=== PATIENT | female | born 1980 | race Caucasian/White ===

== ENCOUNTER 2017-08-23 11:24 | Observation (INO) | payer SELFPAY ==
[~2017-08-23 11:24] MED LIST: LIDOCAINE 2% INJ-PF (20 MG/ML) 10 ML AMPUL ONE; SUCCINYLCHOLINE CHLORIDE INJ 200 MG/10 ML VIAL ONE
[2017-08-23] MEDS ORDERED: INFLUENZA ADLT QUAD (36MOS+) 2017-18 VAC 0.5 ML SYR IM PRN (12:24)
[2017-08-23] MEDS ORDERED: MORPHINE SULFATE 10 MG/ML INJ IV PRN ×3 (12:26→19:32)
[2017-08-23 13:00] LABS: HEMATOCRIT 36.7 % (36.0-47.0); HEMOGLOBIN 13.1 g/dL (12.0-15.5); HGB HCT DIFFERENCE 2.6; MEAN CORPUSCULAR HEMOGLOBIN 30.4 pg (27.0-33.4); MEAN CORPUSCULAR HGB CONC 35.6 g/dL (32.0-36.0); MEAN CORPUSCULAR VOLUME 85 fl (80-97); RED CELL DISTRIBUTION WIDTH 13.7 % (11.5-14.0); WHITE BLOOD COUNT 7.6 10^3/uL (4.0-10.5)
[2017-08-23 13:16] LABS: ANION GAP 11 (5-19); BLOOD UREA NITROGEN 10 mg/dL (7-20); CALCIUM 9.3 mg/dL (8.4-10.2); CARBON DIOXIDE 25 mmol/L (22-30); CHLORIDE 103 mmol/L (98-107); CREATININE RESULT 0.55 mg/dL (0.52-1.25); GLUCOSE 120 mg/dL (75-110); POTASSIUM 4.3 mmol/L (3.6-5.0); SODIUM 138.6 mmol/L (137-145)
[2017-08-23] MEDS ORDERED: CLINDAMYCIN PHOSPHATE 450 MG in DEXTROSE 5%-WATER 50 ML IV SCH (14:00)
[2017-08-23] MEDS: NORMAL SALINE 1000 ML 1,000 ML IV PRN (14:02)
--- NOTE | 2017-08-23 16:02 | RADIOLOGY REPORT (SQ) ---
EXAM DESCRIPTION: U/S BREAST UNILATERAL COMPLETE COMPLETED DATE/TIME: 08/23/2017 2:05 pm REASON FOR STUDY: RIGHT BREAST ABSCESS COMPARISON: None. TECHNIQUE: Real-time and static grayscale imaging performed of the right breast targeted to the area of clinical concern. Selected color Doppler images recorded. ELASTOGRAPHY PERFORMED: No. LIMITATIONS: None. FINDINGS: Patient has a palpable abnormality in the right retroareolar region, skin thickening and r edness. Ultrasound of the right retroareolar region demonstrates a hypoechoic irregularly-shaped fluid collec tion measuring about 3.3 x 2.2 x 1.6 cm in size. There is debris within this fluid collection. There is a fluid-filled tract towards the nipple, likely a dilated duct. No ductal filling defects worrisome for papilloma. IMPRESSION: Saccular dilated right retroareolar duct with debris. No ductal filling defects worriso me for papilloma at ultrasound. BIRAD: 2 Benign findings, probable dilated infected duct. RECOMMENDATION: RECOMMENDED FOLLOW-UP: Follow-up as clinically indicated. COMMENT: Case discussed with Dr. Santos PATIENT NOTIFIED BY LETTER. [employer], [employer], and [employer] recommend an annual screening mammogram for women aged 40 years or over. Each patient will recei ve a reminder prior to the anniversary date of her mammogram. The [employer] (ACR) has developed recommendations for screening MRI of the breast s in certain patient populations, to be used in conjunction with mammography. Breast MRI surveillanc e may be appropriate for women with more than 20% lifetime risk of developing breast cancer as deter mined by genetic testing, significant family history of the disease, or history of mantle radiation f or Hodgkins Disease. ACR Practice Guidelines 2008. TECHNICAL DOCUMENTATION: JOB ID: [id number] [employer]- All Rights Reserved
[2017-08-23] MEDS ORDERED: LIDOCAINE 0.5% INJ-PF (5 MG/ML) 50 ML SDV ONE (17:04)
[2017-08-23] MEDS ORDERED: FENTANYL CITRATE INJ/PF 100 MCG/2 ML AMPUL ONE ×2 (17:35→18:59)
[2017-08-23] MEDS ORDERED: KETAMINE HCL INJ 500 MG/10 ML VIAL ONE (17:35)
[2017-08-23] MEDS ORDERED: MIDAZOLAM 2 MG/2 ML INJ ONE (17:36)
[2017-08-23] MEDS ORDERED: PROPOFOL INJ 200 MG/20 ML VIAL IV ONE (17:36)
[2017-08-23] MEDS ORDERED: PROMETHAZINE HCL INJ 25 MG/1 ML VIAL IV PRN (18:22)
[2017-08-23] MEDS ORDERED: PROMETHAZINE HCL INJ 25 MG/1 ML VIAL ONE (18:49)
--- NOTE | 2017-08-23 19:17 | OPERATIVE REPORT E ---
Operative Report NAME: TIA DELGADO : 1980 AGE: 37Y DATE OF SURGERY: ROOM: 529 PREOPERATIVE DIAGNOSIS: ABSCESS, RIGHT BREAST. POSTOPERATIVE DIAGNOSIS: ABSCESS, RIGHT BREAST. OPERATION: Incision and drainage of abscess, right breast, and right breast biopsy. SURGEON: JANE MCKEON M.D. ANESTHESIA: General. INDICATION: This is a 36-year-old female who has been complaining of pains in the right breast. She was seen in the clinic today and subsequently sent for an ultrasound. The ultrasound showed a dilated duct with possible abscess. PROCEDURE: After adequate general anesthesia, the right breast was then prepped and draped in the usual sterile fashion. After adequate and appropriate timeout was called, a circumareolar incision made over the previous scar on the lower inner quadrant of the right breast where the palpable lump was noted. The lump could be palpated underneath the areola and the 18-gauge needle was then used to aspirate the collection and aspirated about 5 mL of whitish fluid. The specimen was sent for culture. Next, the sac was then opened up and pulse lavaged using a liter of saline which was done. Hemostasis was then obtained with cautery. No other area of abscess cavity was noted based on the finger palpation. Next, the operative site was then packed with a bottle of 1/4 inch Iodoform gauze. Hemostasis obtained primarily along the skin incision with cautery. A sterile dressing was placed over the operative site. Needle, instrument and sponge count were all correct. Estimated blood loss was about 20 mL. The patient tolerated the procedure well and was brought to the PACU in satisfactory condition. DICTATING PHYSICIAN: JANE MCKEON M.D. [id number] PHY#: [id number] ID: [id number] JOB#: [id number] ACCT: [id number] cc:JANE MCKEON M.D. > [facility]
[2017-08-23] MEDS ORDERED: ONDANSETRON HCL INJ/PF 4 MG/2 ML SDV IV PRN (19:33)
[2017-08-23] MEDS: DIPHENHYDRAMINE HCL 50 MG/ML VIAL IV PRN ×3 (19:52→21:04)
[2017-08-23] MEDS: FENTANYL CITRATE INJ/PF 100 MCG/2 ML AMPUL IV PRN ×9 (19:52→21:04)
[2017-08-23] MEDS ORDERED: ZOLPIDEM TARTRATE 5 MG TABLET PO PRN (21:01)
[2017-08-23] MEDS: CLINDAMYCIN 600 MG/D5W RTU 600 MG/50 ML RTUPB IV SCH (21:07)
[2017-08-23] MEDS ORDERED: NICOTINE 21 MG/24 HR PATCH.TD24 TD ONE (21:30)
[2017-08-24] MEDS: NORMAL SALINE 1000 ML 1,000 ML IV PRN (00:03)
[2017-08-24] MEDS: CLINDAMYCIN 600 MG/D5W RTU 600 MG/50 ML RTUPB IV SCH ×2 (03:04→08:25)
[2017-08-24] MEDS: OXYCODONE-ACETAMINOPHEN 5-325 MG TABLET PO PRN ×3 (04:31→08:32)
[2017-08-24 08:09] VITALS: BP 126/49
[2017-08-24] MEDS ORDERED: NICOTINE 21 MG/24 HR PATCH.TD24 TD SCH (10:00)
== END 2017-08-24 09:12 | disposition home or self-care (01) ==
LOC: 5 11:24 → INTOOBSV 11:24
PROVIDERS: ADMIT Surgery; ATTEND Surgery
PROC: 0H9T3ZX Drainage of Right Breast, Percutaneous Approach, Diagnostic (ICD-10-PCS; principal; 2017-08-23 17:00)
PROC: 3E0234Z Introduction of Serum, Toxoid and Vaccine into Muscle, Percutaneous Approach (ICD-10-PCS; 2017-08-24)
DX: N61.1 Abscess of the breast and nipple (principal); F17.200 Nicotine dependence, unspecified, uncomplicated; Z80.3 Family history of malignant neoplasm of breast; Z98.890 Other specified postprocedural states
CPT/HCPCS: 36415; 87070; 87205; 84702; 84703; 85027; 87075; 87077; 80048; 88305 ×2; 88342; 90686; 76641; 10021; A6266; J2250; J3010; J3490 ×2; J2270; J2550; J0330; J7030 ×2; J2704; 300; 400

== ENCOUNTER 2017-10-24 17:02 | Observation (INO) | payer SELFPAY ==
[2017-10-24] MEDS ORDERED: MORPHINE SULFATE 10 MG/ML INJ IV PRN (20:21)
[2017-10-24] MEDS ORDERED: VANCOMYCIN HCL INJ 1000 MG VIAL IV ONE (20:23)
--- NOTE | 2017-10-24 20:25 | ER Document Report ---
ED General - General Chief Complaint: Abscess Stated Complaint: ABSCESS ON RIGHT BREAST Time Seen by Provider: 10/24/17 19:13 Notes: Patient is a 37-year-old female with a past medical history of morbid obesity, recurrent right breast abscesses most recently incised and drained in the operating room in August 2017 who presents with 3 days of increasing pain and swelling to the right breast. Patient has an area falling and fluctuance to the right breast over the level of the area left. She states that this is the same location that she has had 2 prior abscesses formed. She notes a dull, constant, throbbing pain to the area that is worsened by touching the area. Nothing improves the pain. She has not had any fever or constitutional symptoms. She has not seen a primary care doctor regarding today's concerns. TRAVEL OUTSIDE OF THE [place] IN LAST 30 DAYS: No - Related Data Allergies/Adverse Reactions: No Known Allergies Allergy (Verified 10/24/17 17:04) Home Medications: Current Home Medications No Home Medications 10/24/17 [History] Past Medical History - General Information source: Patient - Social History Smoking Status: Never Smoker Chew tobacco use (# tins/day): No Frequency of alcohol use: None Drug Abuse: None Lives with: Family Family History: Reviewed & Not Pertinent Patient has suicidal ideation: No Patient has homicidal ideation: No Pulmonary Medical History: Reports: Hx Bronchitis Renal/ Medical History: Denies: Hx Peritoneal Dialysis Psychiatric Medical History: Reports: Hx Depression Review of Systems - Review of Systems Notes: Constitutional: Negative for fever. HENT: Negative for sore throat. Eyes: Negative for visual changes. Cardiovascular: Negative for chest pain. Respiratory: Negative for shortness of breath. Gastrointestinal: Negative for abdominal pain, vomiting or diarrhea. Genitourinary: Negative for dysuria. Musculoskeletal: Negative for back pain. Skin: Positive for right breast abscess Neurological: Negative for headaches, weakness or numbness. 10 point ROS negative except as marked above and in HPI. Physical Exam - Vital signs Vitals: Temp Pulse Resp BP Pulse Ox 99.1 F 90 20 130/88 H 98 10/24/17 17:18 10/24/17 17:18 10/24/17 17:18 10/24/17 17:18 10/24/17 17:18 Interpretation: Normal Notes: PHYSICAL EXAMINATION: GENERAL: Well-appearing, well-nourished and in no acute distress. HEAD: Atraumatic, normocephalic. EYES: Pupils equal round and reactive to light, extraocular movements intact, sclera anicteric, conjunctiva are normal. ENT: nares patent, oropharynx clear without exudates. Moist mucous membranes. NECK: Normal range of motion, supple without lymphadenopathy LUNGS: Breath sounds clear to auscultation bilaterally and equal. No wheezes rales or rhonchi. HEART: Regular rate and rhythm without murmurs Breasts: There is a 3 x 4 cm area of swelling and induration that is in the 5 o' clock position of the areole extending just slightly off of the margin of the area. ABDOMEN: Soft, nontender, normoactive bowel sounds. No guarding, no rebound. No masses appreciated. EXTREMITIES: Normal range of motion, no pitting or edema. No cyanosis. NEUROLOGICAL: No focal neurological deficits. Moves all extremities spontaneously and on command. PSYCH: Normal mood, normal affect. SKIN: Warm, Dry, normal turgor, no rashes or lesions noted. Course - Re-evaluation Re-evalutation: 10/24/17 20:24 Patient presents with a 3 x 4 cm area of an abscess to the approximately 5 o' clock position on her breast overlying the area of the area Dayna. Patient is otherwise nontoxic in appearance, vitals within normal limits. There is exquisite pain to palpation of the area. She has required operative management on 2 prior occasions for the same presentation. I discussed the case with the surgeon on-call doctor tomorrow who agrees to admit the patient given her need for prior abscess drainages in the operating room. IV antibiotics including vancomycin and ceftriaxone have been started. Pain control has been ordered. She will be made n.p.o. at midnight. Basic labs and ultrasound of the breast will also be obtained. - Vital Signs Vital signs: Temp Pulse Resp BP Pulse Ox 99.1 F 92 16 133/76 H 98 10/24/17 22:54 10/24/17 22:54 10/24/17 22:54 10/24/17 22:54 10/24/17 22:54 - Laboratory Result Diagrams: 10/24/17 21:00 10/24/17 21:00 Discharge - Discharge Clinical Impression: Abscess of right breast Condition: Fair Disposition: ADMITTED OBSERVATION Admitting Provider: Surgicalist - [facility] Unit Admitted: Surgical Floor
[2017-10-24] MEDS ORDERED: CEFTRIAXONE 1 GM/D5W RTU 1 GM/50 ML RTUPB IV ONE (21:00)
[2017-10-24] MEDS ORDERED: ONDANSETRON HCL INJ/PF 4 MG/2 ML SDV IV PRN (21:03)
[2017-10-24 21:14] LABS: ABSOLUTE EOSINOPHILS # (AUTO) 0.3 10^3/uL (0.0-0.6); ABSOLUTE LYMPHOCYTES (AUTO) 3.7 10^3/uL (0.5-4.7); ABSOLUTE MONOCYTES (AUTO) 0.5 10^3/uL (0.1-1.4); ABSOLUTE NEUT (AUTO) 6.7 10^3/uL (1.7-8.2); BASOPHILS % (AUTO) 0.2 % (0-2); HEMOGLOBIN 13.5 g/dL (12.0-15.5); HGB HCT DIFFERENCE 1.5; LYMPHOCYTES % (AUTO) 33.1 % (13-45); MEAN CORPUSCULAR HEMOGLOBIN 29.9 pg (27.0-33.4); MEAN CORPUSCULAR HGB CONC 34.6 g/dL (32.0-36.0); MEAN CORPUSCULAR VOLUME 86 fl (80-97); MONOCYTES % (AUTO) 4.1 % (3-13); RED BLOOD COUNT 4.52 10^6/uL (3.72-5.28); RED CELL DISTRIBUTION WIDTH 12.4 % (11.5-14.0); SEGMENTED NEUTROPHILS % (AUTO) 59.6 % (42-78); WHITE BLOOD COUNT 11.2 10^3/uL (4.0-10.5)
[2017-10-24 21:33] LABS: ANION GAP 14 (5-19); BLOOD UREA NITROGEN 11 mg/dL (7-20); CALCIUM 9.2 mg/dL (8.4-10.2); CARBON DIOXIDE 21 mmol/L (22-30); CHLORIDE 106 mmol/L (98-107); CREATININE RESULT 0.61 mg/dL (0.52-1.25); GLUCOSE 134 mg/dL (75-110); POTASSIUM 4.1 mmol/L (3.6-5.0); SODIUM 140.8 mmol/L (137-145)
[2017-10-24] MEDS ORDERED: ENOXAPARIN SODIUM INJ 40 MG/0.4 ML DISP.SYRIN SUBCUT ONE (22:00)
--- NOTE | 2017-10-24 22:17 | RADIOLOGY REPORT (SQ) ---
EXAM DESCRIPTION: U/S BREAST UNILATERAL LIMITED COMPLETED DATE/TIME: 10/24/2017 9:48 pm REASON FOR STUDY: right breast abscess COMPARISON: None TECHNIQUE: Static and Realtime grayscale interrogation of focal area(s) of concern in the right misty st(s) acquired. Selected color doppler/spectral images saved to PACS. LIMITATIONS: None. FINDINGS: Masses:A hypoechoic area is identified in the retro areolar region at the approximate 4 to 5 o'clock position with findings suspicious for an abscess collection. The hypoechoic area measures 1.3 x 1.3 x 0.7 cm in diameters. Other: None. IMPRESSION: Hypoechoic area in the retroareolar region as noted above suspicious for an abscess col lection. Clinical correlation is recommended. Other findings as noted above BIRAD: Not applicable. RECOMMENDATION: RECOMMENDED FOLLOW-UP: Follow-up as clinically indicated. COMMENT: The [place] (ACR) has developed recommendations for screening MRI of the breasts in certain patient populations, to be used in conjunction with mammography. Breast MRI s urveillance may be appropriate for women with more than 20% lifetime risk of developing breast cancer as determined by genetic testing, significant family history of the disease, or history of mantle r adiation for Hodgkins Disease. ACR Practice Guidelines 2008. TECHNICAL DOCUMENTATION: FINDING NUMBER: (1) ASSESSMENT: (1) JOB ID: [id number] [employer]- All Rights Reserved
[2017-10-24] MEDS ORDERED: PIPERACILLIN/TAZOBACTAM 4.5 GM VIAL IV PRN (23:08)
[2017-10-25] MEDS ORDERED: LORAZEPAM INJ 2 MG/1 ML VIAL IV PRN (00:48)
[2017-10-25] MEDS ORDERED: PIPERACILLIN/TAZOBACTAM 4.5 GM VIAL IV ONE (01:29)
[2017-10-25] MEDS: PIPERACILLIN SODIUM/TAZOBACTAM 4.5 GM in NORMAL SALINE 100 ML IV SCH ×4 (01:48→18:47)
[2017-10-25] MEDS: RINGERS SOLUTION,LACTATED 1,000 ML IV PRN ×2 (01:49→12:55)
[2017-10-25] MEDS: HYDROMORPHONE HCL INJ/PF 2 MG/ML AMPULE IV PRN ×3 (03:30→11:05)
[2017-10-25] MEDS ORDERED: PIPERACILLIN SODIUM/TAZOBACTAM 3.375 GM in NORMAL SALINE 100 ML IV SCH (10:00)
--- NOTE | 2017-10-25 11:24 | PDOC H&P ---
History of Present Illness Admission Date/PCP: 10/24/17 20:49 KULDIP ADAN DO Patient complains of: Patient is a 37-year-old female with a past medical history of morbid obesity, recurrent right breast abscesses most recently incised and drained in the operating room in August 2017 who presents with 3 days of increasing pain and swelling to the right breast. Patient has an area falling and fluctuance to the right breast over the level of the area left. She states that this is the same location that she has had 2 prior abscesses formed. She notes a dull, constant, throbbing pain to the area that is worsened by touching the area. Nothing improves the pain. She has not had any fever or constitutional symptoms. History of Present Illness: TIA DELGADO is a 37 year old female Past Medical History Pulmonary Medical History: Reports: Bronchitis Psychiatric Medical History: Reports: Depression Social History Lives with: Family Smoking Status: Never Smoker Frequency of Alcohol Use: Occasional Hx Recreational Drug Use: No Drugs: None Hx Prescription Drug Abuse: No - Advance Directive Resuscitation Status: Full Code Family History Family History: Reviewed & Not Pertinent Parental Family History Reviewed: No Children Family History Reviewed: No Sibling(s) Family History Reviewed.: No Medication/Allergy Home Medications: No Home Medications 10/24/17 Allergies/Adverse Reactions: No Known Allergies Allergy (Verified 10/24/17 17:04) Physical Exam Vital Signs: Temp Pulse Resp BP Pulse Ox 97.4 F 87 15 112/61 96 10/25/17 07:26 10/25/17 07:26 10/25/17 07:26 10/25/17 07:26 10/25/17 07:26 General appearance: PRESENT: no acute distress Mouth exam: PRESENT: moist, neck supple Neck exam: PRESENT: full ROM. ABSENT: JVD, lymphadenopathy, tenderness, thyromegaly, tracheal deviation Respiratory exam: PRESENT: chest wall tenderness - Abscess (3x3cm) at 5-6 o' clock position right breast at areolar border. Cardiovascular exam: PRESENT: RRR GI/Abdominal exam: PRESENT: normal bowel sounds, soft. ABSENT: tenderness Rectal exam: PRESENT: deferred Extremities exam: PRESENT: full ROM Musculoskeletal exam: PRESENT: full ROM Neurological exam: PRESENT: alert, altered, awake, oriented to person, oriented to place, oriented to time, oriented to situation Results Laboratory Results: 10/24/17 21:00 10/24/17 21:00 10/24/17 10/24/17 21:00 21:00 WBC 11.2 H RBC 4.52 Hgb 13.5 Hct 39.0 MCV 86 MCH 29.9 MCHC 34.6 RDW 12.4 Plt Count 183 Seg Neutrophils % 59.6 Lymphocytes % 33.1 Monocytes % 4.1 Eosinophils % 3.0 Basophils % 0.2 Absolute Neutrophils 6.7 Absolute Lymphocytes 3.7 Absolute Monocytes 0.5 Absolute Eosinophils 0.3 Absolute Basophils 0.0 Sodium 140.8 Potassium 4.1 Chloride 106 Carbon Dioxide 21 L Anion Gap 14 BUN 11 Creatinine 0.61 Est GFR ( Amer) > 60 Est GFR (Non-Af Amer) > 60 Glucose 134 H Calcium 9.2 Assessment & Plan - Plan Summary Plan Summary: Incision and Drainage of breast abscess in O.R.
[2017-10-25] MEDS ORDERED: FENTANYL CITRATE INJ/PF 100 MCG/2 ML AMPUL ONE (15:57)
[2017-10-25] MEDS ORDERED: PROPOFOL INJ 200 MG/20 ML VIAL IV ONE (15:58)
[2017-10-25] MEDS ORDERED: ONDANSETRON HCL INJ/PF 4 MG/2 ML SDV ONE (15:58)
[2017-10-25] MEDS ORDERED: MIDAZOLAM 2 MG/2 ML INJ ONE (15:58)
[2017-10-25] MEDS ORDERED: BUPIVACAINE HCL 0.5 % INJ/PF 30 ML SDV ONE (16:58)
[2017-10-25] MEDS ORDERED: MEPERIDINE HCL/PF INJ 25 MG/1 ML DISP.SYRIN IV PRN (17:19)
[2017-10-25] MEDS ORDERED: DIPHENHYDRAMINE HCL 50 MG/ML VIAL IV PRN (17:19)
[2017-10-25] MEDS ORDERED: PROMETHAZINE HCL INJ 25 MG/1 ML VIAL IV PRN (17:19)
[2017-10-25] MEDS ORDERED: FENTANYL CITRATE INJ/PF 100 MCG/2 ML AMPUL IV PRN ×3 (17:19)
[2017-10-25] MEDS ORDERED: MORPHINE SULFATE 10 MG/ML INJ IV PRN ×2 (17:19→18:02)
--- NOTE | 2017-10-25 18:02 | Brief Operative Note ---
BRIEF OPERATIVE REPORT DATE OF SURGERY: 10/25/17 TIME OF SURGERY: 17:00 PREOPERATIVE DIAGNOSIS: Right Breast Abscess POSTOPERATIVE DIAGNOSIS: Same SURGEON: ROBBIE CALDERON FINDINGS: Right Breast Abscess COMPLICATIONS: None ESTIMATED BLOOD LOSS: 5cc TISSUE REMOVED OR ALTERED: Abscess wall TECHNICAL PROCEDURE: See dictation
--- NOTE | 2017-10-25 19:08 | OPERATIVE REPORT E ---
Operative Report NAME: TIA DELGADO : 1980 AGE: 37Y DATE OF SURGERY: 10/25/2017 ROOM: 226 PREOPERATIVE DIAGNOSIS: Recurrent right breast abscess. POSTOPERATIVE DIAGNOSIS: Recurrent right breast abscess. OPERATION: Incision and drainage of right breast abscess. SURGEON: ROBBIE CALDERON M.D. ANESTHESIA: MAC plus local anesthesia. DRAINS: A 1/4-inch Queenie drain placed in the depth of the breast and brought out laterally to marya our position of the right breast. COMPLICATIONS: None. CONDITION: Stable. FINDINGS: Patient had an abscess of the right breast at the areolar border at the 6 Dr. *------* 2 months ago. PROCEDURE: Patient was brought to the operating suite and placed in supine position on the operating table. Monitoring devices were attached. IV sedation was administered and the patient's right breast was prepped and draped in the usual sterile manner. A timeout was achieved, then local anesthesia was injected along the areolar border from the 3 o'clock to the 7 o'clock position. We then made an incision at the areolar border from the 3 o'clock to the 7 o'clock position. Incision was carried through skin and subcutaneous tissue and the abscess cavity was noted just posterior to the nipple and areolar region. The purulent drainage was cultured and then we excised the abscess wall and it from the overlying nipple-areolar complex. After excising the wall of the abscess, we irrigated the wound with normal saline, and after adequate hemostasis was accomplished, we placed the 1/4-inch Queenie drain at the base of the wound and brought it out laterally to marya our position of the right breast. We then approximated the subcutaneous tissue over the drain using interrupted 3-0 Vicryl, and the skin was closed in a subcuticular manner using 4-0 Vicryl subcuticular closure. The drain was secured using 3-0 nylon. The patient tolerated the procedure well. Sponge and instrument counts were correct. The patient was discharged to the PAC in stable condition. DICTATING PHYSICIAN: ROBBIE CALDERON M.D. [id number] PHY#: [id number] ID: [id number] JOB#: [id number] ACCT: [id number] cc:ROBBIE CALDERON M.D. >
[2017-10-25] MEDS: OXYCODONE-ACETAMINOPHEN 5-325 MG TABLET PO PRN (21:55)
[2017-10-26] MEDS: PIPERACILLIN SODIUM/TAZOBACTAM 4.5 GM in NORMAL SALINE 100 ML IV SCH ×3 (00:24→11:21)
[2017-10-26] MEDS: OXYCODONE-ACETAMINOPHEN 5-325 MG TABLET PO PRN ×4 (02:18→14:33)
--- NOTE | 2017-10-26 11:13 | PDOC PROGRESS REPORT ---
Subjective Progress Note for:: 10/26/17 Subjective:: Still with some right breast pain. Reason For Visit: RIGHT BREAST ABCESS Physical Exam Vital Signs: Temp Pulse Resp BP Pulse Ox 98.4 F 80 18 128/70 H 99 10/26/17 08:22 10/26/17 08:22 10/26/17 08:22 10/26/17 08:22 10/26/17 08:22 Intake & Output 10/25/17 10/26/17 10/27/17 06:59 06:59 06:59 Intake Total 1600 Output Total 175 Balance 1425 General appearance: PRESENT: no acute distress, cooperative Respiratory exam: PRESENT: clear to auscultation kriss Cardiovascular exam: PRESENT: RRR Skin exam: PRESENT: other - Right breast with a Queenie in place. No erythema no induration central tenderness. Results Laboratory Results: 10/24/17 21:00 10/24/17 21:00 Assessment & Plan - Diagnosis (1) Abscess of right breast Is this a current diagnosis for this admission?: Yes Plan: Status post incision and drainage and drain placement. Looks good. Will discharge patient home with p.o. antibiotics and will follow up at our office next week.
--- NOTE | 2017-10-26 12:14 | DISCHARGE SUMMARY E ---
Discharge Summary NAME: TIA DELGADO : 1980 AGE: 37Y ADMITTED: 10/25/2017 DISCHARGED: 10/26/2017 DISCHARGE DIAGNOSIS: Right breast abscess. PROCEDURE PERFORMED DURING HOSPITALIZATION: Right breast abscess incision and drainage performed by Dr. Ayala on 10/25/2017. HOSPITAL COURSE: The patient underwent the above mentioned surgery. She did well postoperatively. Her wound looked good at the time of discharge with no erythema, although she still had tenderness. Her vital signs were stable. Patient is now being discharged to home in good condition. She will follow up with Dr. Stanley next week. DISCHARGE MEDICATIONS: 1. Keflex 500 mg 1 p.o. q.i.d. for 10 days. 2. Percocet 1 p.o. q. 4 hours p.r.n. pain. DISCHARGE INSTRUCTIONS: I have asked her to take a shower daily with the dressings off and then reapply dry dressing. I have also asked her to quit smoking to allow this area to heal without recurrence. She may follow a regular diet. DICTATING PHYSICIAN: DAVID CONNOR M.D. [id number] PHY#: [id number] ID: [id number] JOB#: [id number] ACCT: [id number] cc:DAVID CONNOR M.D. [facility],
[2017-10-26 12:35] VITALS: BP 120/56
== END 2017-10-26 15:46 | disposition home or self-care (01) ==
LOC: ER 17:02 → EH 20:49 → 2S 10-25 00:33
PROVIDERS: ATTEND Surgery
PROC: 0JB60ZZ Excision of Chest Subcutaneous Tissue and Fascia, Open Approach (ICD-10-PCS; 2017-10-25)
PROC: 0J960ZZ Drainage of Chest Subcutaneous Tissue and Fascia, Open Approach (ICD-10-PCS; principal; 2017-10-25 15:15)
DX: N61.1 Abscess of the breast and nipple (principal)
CPT/HCPCS: 99284; 96372; 96365; 96367; 36415; 87040; 87070; 87205; 85025; 81025; 87075; 87077; 80048; 88305 ×2; 76642; 10060; 19499; G0378 ×3; J2250; J3010; J2270; J1650; J1170; J2060; J2405; J7120; J2704; J3370; J0696; J2543 ×2; 400

== ENCOUNTER 2017-11-26 17:49 | Observation (INO) | payer SELFPAY ==
[2017-11-26 23:01] LABS: ANION GAP 16 (5-19); BLOOD UREA NITROGEN 13 mg/dL (7-20); CALCIUM 10.4 mg/dL (8.4-10.2); CARBON DIOXIDE 20 mmol/L (22-30); CHLORIDE 102 mmol/L (98-107); GLUCOSE 178 mg/dL (75-110); POTASSIUM 4.2 mmol/L (3.6-5.0); SODIUM 137.8 mmol/L (137-145)
--- NOTE | 2017-11-26 23:32 | PDOC H&P ---
History of Present Illness Admission Date/PCP: 11/26/17 20:58 KULDIP ADAN DO Patient complains of: Right breast pains since yesterday. History of Present Illness: TIA DELGADO is a 37 year old female who started c/o right breast pains yesterday. Had right breast abscess drained in February in [place]. Again in Aug and October here at [facility]. US of right breast showed a small abscess abour 1.8 cm at the areolar area. Past Medical History Pulmonary Medical History: Reports: Bronchitis Psychiatric Medical History: Reports: Depression Past Surgical History Past Surgical History: Reports: Other - Right breast abscess drained February,Aug & Oct 2017 Tremaine Ahn Social History Smoking Status: Current Some Day Smoker Cigarettes Packs Per Day: 0.2 Frequency of Alcohol Use: Occasional Hx Recreational Drug Use: No Drugs: None Hx Prescription Drug Abuse: No - Advance Directive Resuscitation Status: Full Code Family History Family History: Reviewed & Not Pertinent Parental Family History Reviewed: Yes - Father has DM and Coronary heart disease ,had VT Children Family History Reviewed: No Sibling(s) Family History Reviewed.: No Medication/Allergy Home Medications: No Home Medications 11/27/17 Allergies/Adverse Reactions: No Known Allergies Allergy (Verified 10/24/17 17:04) Review of Systems Constitutional: PRESENT: other - Denies fever/chills Eyes: PRESENT: other - no visual/hearing problems Nose, Mouth, and Throat: PRESENT: other - no sore throat Breasts: PRESENT: other - Pains right breast Cardiovascular: PRESENT: other - no chest pains Respiratory: PRESENT: other - no cough Gastrointestinal: PRESENT: other - no abdominal pains Genitourinary: PRESENT: other - no dysuria Integumentary: PRESENT: other - no rash Neurological: PRESENT: other - no seizures Psychiatric: PRESENT: anxiety Endocrine: PRESENT: other - no polyuria Hematologic/Lymphatic: PRESENT: other - no easy bruisability Physical Exam General appearance: PRESENT: no acute distress Head exam: PRESENT: atraumatic Eye exam: PRESENT: conjunctiva pink Mouth exam: PRESENT: moist, tongue midline Neck exam: PRESENT: full ROM Respiratory exam: PRESENT: clear to auscultation kriss Cardiovascular exam: PRESENT: RRR GI/Abdominal exam: PRESENT: soft Rectal exam: PRESENT: deferred Extremities exam: PRESENT: full ROM Musculoskeletal exam: PRESENT: ambulatory Neurological exam: PRESENT: alert, oriented to person, oriented to place, oriented to time, oriented to situation Psychiatric exam: PRESENT: anxious Skin exam: PRESENT: other - tender mass right areolar area Results Laboratory Results: 11/26/17 22:30 11/26/17 22:30 Sodium 137.8 Potassium 4.2 Chloride 102 Carbon Dioxide 20 L Anion Gap 16 BUN 13 Creatinine 0.68 Est GFR ( Amer) > 60 Est GFR (Non-Af Amer) > 60 Glucose 178 H Calcium 10.4 H Assessment & Plan - Time Time Spent: 30 to 50 Minutes - Inpatient Certification Based on my medical assessment, after consideration of the patient's comorbidities, presenting symptoms, or acuity I expect that the services needed warrant INPATIENT care.: No I certify that my determination is in accordance with my understanding of Medicare's requirements for reasonable and necessary INPATIENT services [42 CFR 412.3e].: Yes Medical Necessity: Need for IV Antibiotics, Need for Surgery, Risk of Complication if Not Cared For in Hospital - Plan Summary Plan Summary: Start IV antibiotics NPO from midnite Possible I&D tomorrow
[2017-11-27] MEDS ORDERED: DEXTROSE 50%-WATER 25 GM/50 ML DISP.SYRIN IV PRN ×2 (00:24)
[2017-11-27] MEDS ORDERED: DEXTROSE 40% GEL 15 GM TUBE PO PRN ×2 (00:24)
[2017-11-27] MEDS ORDERED: GLUCAGON,HUMAN RECOMB 1 MG INJ SUBCUT PRN (00:24)
[2017-11-27] MEDS: NORMAL SALINE 1000 ML 1,000 ML IV PRN ×3 (00:30→20:36)
[2017-11-27] MEDS ORDERED: MORPHINE SULFATE 10 MG/ML INJ ONE (00:58)
[2017-11-27] MEDS ORDERED: LORAZEPAM INJ 2 MG/1 ML VIAL IV PRN (01:48)
[2017-11-27] MEDS ORDERED: VANCOMYCIN HCL INJ 1000 MG VIAL IV PRN (02:01)
[2017-11-27 04:11] LABS: ABSOLUTE BASOPHILS # (AUTO) 0.1 10^3/uL (0.0-0.2); ABSOLUTE EOSINOPHILS # (AUTO) 0.2 10^3/uL (0.0-0.6); ABSOLUTE LYMPHOCYTES (AUTO) 3.4 10^3/uL (0.5-4.7); ABSOLUTE MONOCYTES (AUTO) 0.3 10^3/uL (0.1-1.4); ABSOLUTE NEUT (AUTO) 5.8 10^3/uL (1.7-8.2); BASOPHILS % (AUTO) 1.2 % (0-2); EOSINOPHILS % (AUTO) 2.1 % (0-6); HEMATOCRIT 45.5 % (36.0-47.0); HEMOGLOBIN 15.5 g/dL (12.0-15.5); LYMPHOCYTES % (AUTO) 34.7 % (13-45); MEAN CORPUSCULAR HEMOGLOBIN 29.4 pg (27.0-33.4); MEAN CORPUSCULAR VOLUME 86 fl (80-97); MONOCYTES % (AUTO) 2.9 % (3-13); PLATELET COUNT 233 10^3/uL (150-450); RED BLOOD COUNT 5.27 10^6/uL (3.72-5.28); RED CELL DISTRIBUTION WIDTH 12.6 % (11.5-14.0); SEGMENTED NEUTROPHILS % (AUTO) 59.1 % (42-78); TOTAL CELLS COUNTED % (AUTO) 100 %; WHITE BLOOD COUNT 9.8 10^3/uL (4.0-10.5)
[2017-11-27] MEDS: MORPHINE SULFATE 10 MG/ML INJ IV PRN ×2 (05:12→09:17)
--- NOTE | 2017-11-27 09:00 | Physician Advisory Note ---
Physician Advisor ProgressNote .: Pursuant to the plan for [facility], I have reviewed the medical record for this patient. Physician Advisor Statement: Please consider documenting, if you agree: 1. "obesity with BMI 40.4" Thanks! CK
--- NOTE | 2017-11-27 09:16 | RADIOLOGY REPORT (SQ) ---
EXAM DESCRIPTION: U/S BREAST UNILATERAL LIMITED COMPLETED DATE/TIME: 11/27/2017 1:12 am REASON FOR STUDY: RULE OUT ABSCESS COMPARISON: None accessible TECHNIQUE: Real-time and static grayscale imaging performed of the right breast targeted to the area of clinical/mammographic concern. Selected color Doppler images recorded. LIMITATIONS: None. FINDINGS: MASS: 1.7 by 1.1 x 0.8 cm complicated anechoic mass with through transmission periareolar on the right at 3 o'clock. OTHER: No other significant finding. IMPRESSION: Complex cystic lesion compatible with the clinical diagnosis of small breast abscess. BIRAD: 2 Benign findings. RECOMMENDATION: RECOMMENDED FOLLOW-UP: Follow-up as clinically indicated. COMMENT: The [place] [employer] (ACR) has developed recommendations for screening MRI of the breasts in certain patient populations, to be used in conjunction with mammography. Breast MRI s urveillance may be appropriate for women with more than 20% lifetime risk of developing breast cancer as determined by genetic testing, significant family history of the disease, or history of mantle r adiation for Hodgkins Disease. ACR Practice Guidelines 2008. TECHNICAL DOCUMENTATION: JOB ID: [id number] [employer]- All Rights Reserved
[2017-11-27] MEDS: VANCOMYCIN HCL 1,000 MG in DEXTROSE 5%-WATER 250 ML IV SCH ×2 (10:11→23:09)
[2017-11-27] MEDS ORDERED: FENTANYL CITRATE INJ/PF 100 MCG/2 ML AMPUL ONE (12:41)
[2017-11-27] MEDS ORDERED: LIDOCAINE 2% INJ-PF (20 MG/ML) 10 ML AMPUL ONE (12:41)
[2017-11-27] MEDS ORDERED: PROPOFOL INJ 200 MG/20 ML VIAL IV ONE (12:42)
[2017-11-27] MEDS ORDERED: MIDAZOLAM 2 MG/2 ML INJ ONE ×2 (12:42→13:15)
[2017-11-27] MEDS ORDERED: KETAMINE HCL INJ 500 MG/10 ML VIAL ONE (13:15)
[2017-11-27] MEDS ORDERED: BUPIVACAINE HCL 0.5 % INJ/PF 30 ML SDV ONE (13:18)
[2017-11-27] MEDS ORDERED: LIDOCAINE 1% INJ-PF (10 MG/ML) 30 ML SDV ONE (13:18)
[2017-11-27] MEDS ORDERED: BUPIVACAINE HCL 0.25 % INJ/PF (2.5 MG/1 ML) 30 ML VIAL ONE (13:19)
[2017-11-27] MEDS ORDERED: ONDANSETRON HCL INJ/PF 4 MG/2 ML SDV IV PRN (13:48)
[2017-11-27] MEDS ORDERED: PROMETHAZINE HCL INJ 25 MG/1 ML VIAL IV PRN ×2 (13:48)
[2017-11-27] MEDS ORDERED: MORPHINE SULFATE 10 MG/ML INJ IV PRN (13:48)
[2017-11-27] MEDS ORDERED: MEPERIDINE HCL/PF INJ 25 MG/1 ML DISP.SYRIN IV PRN (13:48)
[2017-11-27] MEDS ORDERED: FENTANYL CITRATE INJ/PF 100 MCG/2 ML AMPUL IV PRN ×3 (13:48)
[2017-11-27] MEDS ORDERED: OXYCODONE-ACETAMINOPHEN 5-325 MG TABLET PO PRN ×2 (13:48)
[2017-11-27] MEDS ORDERED: DIPHENHYDRAMINE HCL 50 MG/ML VIAL IV PRN (13:48)
[2017-11-27] MEDS: FENTANYL CITRATE INJ/PF 100 MCG/2 ML AMPUL ONE ×2 (14:18→14:25)
--- NOTE | 2017-11-27 14:25 | Operative Report ---
Operative Report DATE OF SURGERY: 11/27/17 PREOPERATIVE DIAGNOSIS: 1. Chronic right breast pain. 2. Status post incision and drainage drainage, and subsequent limited right breast lumpectomy POSTOPERATIVE DIAGNOSIS: Same with minimal findings some no evidence of infection at previous drain site right breast, 9 o'clock position, centimeters from nipple; residual central breast cavity with minimal fluid postoperative and tissue breakdown OPERATION: 1. Focused ultrasound of the right breast. 2. Limited debridement central cavity right breast with placement of large diameter, truncated Albert- Jones drain. 3. Limited debridement of previous drain site 9 o'clock position right breast SURGEON: JOSEPH STANLEY ANESTHESIA: LMAC TISSUE REMOVED OR ALTERED: Cavity irrigant COMPLICATIONS: None ESTIMATED BLOOD LOSS: Minimal INTRAOPERATIVE FINDINGS: See below PROCEDURE: Patient is seen in the preop holding area with the right breast was marked. The record, Dr. Stanley spoke with the patient on the floor this morning at [facility] approximately 9:00; and again in the preop holding area at approximately 1:00 PM. My assessment was that the patient's planes of pain, and obsession with her right breast were out of proportion to physical exam findings as well as radiographic findings, specifically last p.m. ultrasound. My plan initially was to perform focused ultrasound at bedside possible needle aspiration of the right breast residual fluid cavity but the patient was not interested in undergoing a procedure using this approach. Therefore we are bringing her back to the operating room with the assistance of anesthesia. Her graft The patient was taken to the operating room where LMAC anesthesia was induced. The right breast was exposed, prepped and draped sterile fashion. Surgical plan surgical timeout were conducted. The findings on physical exam were significant for no erythema. There is some firmness around the distorted postoperative area [place]. There is some flattening and distortion of the nipple. A few pimples, with no drainage. At the 9:00 addition approximately 7 cm from the nipple side of the previous operative drain which appears clinically to have no infection however this is an area of great pain to the patient. Both the superior aspect of the right breast, and the 9 o'clock position of the ipsilateral breast were anesthetized with quarter percent Marcaine. An ultrasound, I scanned the central aspect of the right breast. No evidence of difficult edema. There was a hypoechoic control but he approximately 0.5 x 2 and half centimeters, horizontally oriented with some Posterior enhancement. Multiple photos taken. Impression was that of residual fluid versus postoperative cavity. I used 18-gauge needle and ultrasound as a guide to aspirate this area. We did get some altered fat appearing fluid. I therefore opened up tract with hemostat and communicated this track with the small cavity. The cavity was irrigated any loculations broken up with a hemostat. We did send some of the initial aspirate for Gram stain and sensitivity. Again there was no evidence of foul smell polyps or foreign body. I also scanned the 9 o'clock position of the right breast. There was a small tract at the site of the previous drain. Photos taken. No zachariah abscess. I did anesthetize the skin, and insinuate a small hemostat into the previous epithelialized drain site. There was no evidence of pus here. Wound irrigated with the saline. For the initial cavity, I placed a shortened #10 Irish Albert-Jones drain into the central abscess cavity and secured to the skin with a 2-0 Prolene suture. Patient tolerated the procedure well. She was taken to recovery room in stable condition.
[2017-11-27] MEDS: DOCUSATE SODIUM 100 MG CAPSULE PO SCH (18:35)
[2017-11-27] MEDS: KETOROLAC TROMETHAMINE INJ/PF 30 MG/1 ML SDV IV PRN (19:22)
[2017-11-27] MEDS ORDERED: OXYCODONE-ACETAMINOPHEN 5-325 MG TABLET ONE (21:21)
[2017-11-27] MEDS: OXYCODONE-ACETAMINOPHEN 5-325 MG TABLET PO PRN (22:14)
[2017-11-28] MEDS: OXYCODONE-ACETAMINOPHEN 5-325 MG TABLET PO PRN ×2 (07:20→15:05)
[2017-11-28] MEDS: DOCUSATE SODIUM 100 MG CAPSULE PO SCH (09:05)
[2017-11-28] MEDS: KETOROLAC TROMETHAMINE INJ/PF 30 MG/1 ML SDV IV PRN (11:41)
--- NOTE | 2017-11-28 12:43 | Physician Advisory Note ---
Physician Advisor ProgressNote .: Pursuant to the plan for [facility], I have reviewed the medical record for this patient. Physician Advisor Statement: STatus: if pt still not improved enough to be safe for d/c, please document ongoing clinical issues/concerns, & may change to Inpatient status. CK
[2017-11-28] MEDS ORDERED: ALBUTEROL SULFATE 0.083% NEB 2.5 MG/3 ML AMPUL NEB PRN (12:59)
[2017-11-28 15:21] VITALS: BP 138/89
--- NOTE | 2017-11-28 17:00 | PDOC DISCHARGE SUMMARY ---
Discharge Summary (SDC) - Discharge Final Diagnosis: Abscess right breast Date of Surgery: 11/27/17 - Incision and drainage with placement of drain by Dr Stanley Discharge Date: 11/28/17 Condition: Stable Forms: Discharge POC-Adult Treatment or Instructions: Leave drain to be pulled in the surgical clinic 11/30/17 Continue po Keflex for 5 days. Percocet prn pain. Possible follow up at the Pain mx clinic. Referrals: JOSEPH STALNEY MD [ACTIVE STAFF] - 11/30/17 1:00 pm (Please follow up at [facility] on 11/30/17 at 1:00 pm.) Discharge Diet: Regular Discharge Activity: Activity As Tolerated, No Driving Home Care Assistance: None Needed Report the Following to Your Physician Immediately: Nausea, Vomiting, Fever over 101 Degrees, Unusual Bleeding, Redness, Swelling, Warmth, Drainage-Yellow, Drainage-Melendez, Drainage-Green, Drainage-Foul Smelling, IV Site Infection Signs
== END 2017-11-28 16:00 | disposition home or self-care (01) ==
LOC: ER 17:49 → EH 20:58 → 2N 11-27 00:14
PROVIDERS: ATTEND Surgery
PROC: 0H9T3ZX Drainage of Right Breast, Percutaneous Approach, Diagnostic (ICD-10-PCS; 2017-11-27)
PROC: BH40ZZZ Ultrasonography of Right Breast (ICD-10-PCS; principal; 2017-11-27 12:45)
DX: N61.1 Abscess of the breast and nipple (principal); G89.29 Other chronic pain; N64.4 Mastodynia; F41.9 Anxiety disorder, unspecified; F17.210 Nicotine dependence, cigarettes, uncomplicated; Z98.890 Other specified postprocedural states
CPT/HCPCS: 99284; 96375; 96365; 96366; 36415; 87070; 87205; 85025; 81025; 87075; 87077; 80048; 87186; 76642; 94640; 10022; 76942; G0378 ×3; J2250; J3010; J3490 ×2; J1885 ×2; J2270; J2060; J7060; J7030; J2704; J3370; 400

== ENCOUNTER 2017-12-04 18:00 | Emergency (ER) | payer SELFPAY ==
[2017-12-04 18:15] VITALS: BP 134/74
[2017-12-04] MEDS ORDERED: OXYCODONE-ACETAMINOPHEN 5-325 MG TABLET PO ONE (18:29)
[2017-12-04 18:48] LABS: ABSOLUTE BASOPHILS # (AUTO) 0.1 10^3/uL (0.0-0.2); ABSOLUTE EOSINOPHILS # (AUTO) 0.3 10^3/uL (0.0-0.6); ABSOLUTE LYMPHOCYTES (AUTO) 3.1 10^3/uL (0.5-4.7); ABSOLUTE MONOCYTES (AUTO) 0.4 10^3/uL (0.1-1.4); ABSOLUTE NEUT (AUTO) 5.6 10^3/uL (1.7-8.2); BASOPHILS % (AUTO) 0.6 % (0-2); EOSINOPHILS % (AUTO) 2.7 % (0-6); HEMATOCRIT 41.9 % (36.0-47.0); HEMOGLOBIN 14.7 g/dL (12.0-15.5); LYMPHOCYTES % (AUTO) 33.5 % (13-45); MEAN CORPUSCULAR HEMOGLOBIN 30.1 pg (27.0-33.4); MEAN CORPUSCULAR HGB CONC 35.1 g/dL (32.0-36.0); MEAN CORPUSCULAR VOLUME 86 fl (80-97); MONOCYTES % (AUTO) 3.7 % (3-13); PLATELET COUNT 208 10^3/uL (150-450); RED BLOOD COUNT 4.88 10^6/uL (3.72-5.28); RED CELL DISTRIBUTION WIDTH 12.4 % (11.5-14.0); SEGMENTED NEUTROPHILS % (AUTO) 59.5 % (42-78); TOTAL CELLS COUNTED % (AUTO) 100 %; WHITE BLOOD COUNT 9.4 10^3/uL (4.0-10.5)
[2017-12-04 19:08] LABS: ALANINE AMINOTRANSFERASE 253 U/L (9-52); ALBUMIN 4.9 g/dL (3.5-5.0); ALKALINE PHOSPHATASE 79 U/L (38-126); ANION GAP 13 (5-19); ASPARTATE AMINO TRANSFERASE 169 U/L (14-36); BILIRUBIN,DIRECT 0.3 mg/dL (0.0-0.4); BILIRUBIN,TOTAL 0.4 mg/dL (0.2-1.3); BLOOD UREA NITROGEN 10 mg/dL (7-20); CALCIUM 10.4 mg/dL (8.4-10.2); CARBON DIOXIDE 24 mmol/L (22-30); CHLORIDE 103 mmol/L (98-107); GLUCOSE 131 mg/dL (75-110); POTASSIUM 4.3 mmol/L (3.6-5.0); SODIUM 140.4 mmol/L (137-145); TOTAL PROTEIN 7.8 g/dL (6.3-8.2)
--- NOTE | 2017-12-04 19:38 | ER Document Report ---
ED Breast Problem - General Chief Complaint: Breast Problem Stated Complaint: RIGHT BREAST PAIN Time Seen by Provider: 12/04/17 18:29 Mode of Arrival: Ambulatory Information source: Patient Notes: Patient complains of right breast pain. She states is severe and constant. She recently had breast surgery for a breast abscess. She states that this is the fourth surgery she has had done. She states that it hurts worse after this surgery than it has previously. She states the pain is deep inside. She states that it is a sharp pain. There is no radiation. Hurts worse when the breast is touched and better when left alone. She has been having red drainage into her Albert-Jones drain. No Fevers. She states she still has Keflex at home but is out of her Percocet. TRAVEL OUTSIDE OF THE [place] IN LAST 30 DAYS: No - Related Data Allergies/Adverse Reactions: No Known Allergies Allergy (Verified 10/24/17 17:04) Past Medical History - General Information source: Patient - Social History Smoking Status: Former Smoker Chew tobacco use (# tins/day): No Frequency of alcohol use: Occasional Drug Abuse: None Family History: Reviewed & Not Pertinent Patient has suicidal ideation: No Patient has homicidal ideation: No Pulmonary Medical History: Reports: Hx Asthma, Hx Bronchitis Renal/ Medical History: Denies: Hx Peritoneal Dialysis Psychiatric Medical History: Reports: Hx Bipolar Disorder, Hx Depression Past Surgical History: Reports: Other - Right breast abscess drained February,Aug & Oct 2017 Tremaine Ahn Review of Systems - Review of Systems Constitutional: denies: Chills, Fever Cardiovascular: Chest pain. denies: Palpitations Respiratory: denies: Cough, Short of breath Genitourinary: denies: Dysuria, Hematuria -: Yes All other systems reviewed and negative Physical Exam - Vital signs Vitals: Temp Pulse Resp BP Pulse Ox 98.9 F 105 H 14 134/74 H 97 12/04/17 18:13 12/04/17 18:13 12/04/17 18:13 12/04/17 18:13 12/04/17 18:13 Interpretation: Hypertensive - General General appearance: Appears well, Alert In distress: None - HEENT Head: Normocephalic, Atraumatic Eyes: Normal Pupils: PERRL - Respiratory Respiratory status: No respiratory distress Chest status: Nontender Breath sounds: Normal Chest palpation: Other - Right breast has a Albert-Jones drain just to the lateral aspect of the right nipple. Surgical site appears to be healing as expected. I do not appreciate any warmth erythema or induration. There is no fluctuance appreciated. It is tender to palpation however. There is no nipple discharge. - Cardiovascular Rhythm: Regular Heart sounds: Normal auscultation Murmur: No - Abdominal Inspection: Normal Distension: No distension Bowel sounds: Normal Tenderness: Nontender Organomegaly: No organomegaly - Back Back: Normal, Nontender - Extremities General upper extremity: Normal inspection, Nontender, Normal color, Normal ROM , Normal temperature General lower extremity: Normal inspection, Nontender, Normal color, Normal ROM , Normal temperature, Normal weight bearing. No: Jaycee's sign - Neurological Neuro grossly intact: Yes Cognition: Normal Orientation: AAOx4 Hector Coma Scale Eye Opening: Spontaneous Hector Coma Scale Verbal: Oriented Hector Coma Scale Motor: Obeys Commands Hector Coma Scale Total: 15 Speech: Normal Motor strength normal: LUE, RUE, LLE, RLE Sensory: Normal - Psychological Associated symptoms: Normal affect, Normal mood - Skin Skin Temperature: Warm Skin Moisture: Dry Skin Color: Normal Course - Vital Signs Vital signs: Temp Pulse Resp BP Pulse Ox 98.9 F 105 H 14 134/74 H 97 12/04/17 18:13 12/04/17 18:13 12/04/17 18:13 12/04/17 18:13 12/04/17 18:13 - Laboratory Result Diagrams: 12/04/17 18:40 12/04/17 18:40 Laboratory results interpreted by me: 12/04/17 18:40 Glucose 131 H Calcium 10.4 H AST 169 H ALT 253 H Discharge - Discharge Clinical Impression: Breast pain, right Condition: Stable Disposition: HOME, SELF-CARE Additional Instructions: Your blood pressure is mildly elevated. Please have this rechecked within 1 week by your doctor. Your liver enzymes are elevated. Therefore it is very important that you do not take any Tylenol. You may use Motrin or ibuprofen [id number] as needed. Please do not take anymore Percocet then you need as this can elevate your liver enzymes further. Please have your liver enzymes are rechecked within 3-5 days. Prescriptions: Oxycodone HCl/Acetaminophen [Percocet 5-325 mg Tablet] 1 - 2 tab PO Q4H PRN #15 tablet PRN Reason: Forms: Elevated Blood Pressure, Return to Work Referrals: JOSEPH URIAS MD [ACTIVE STAFF] - Follow up in 3-5 days
== END 2017-12-04 20:18 | disposition home or self-care (01) ==
LOC: ER 18:00
DX: N64.4 Mastodynia (principal); Z98.890 Other specified postprocedural states; J45.909 Unspecified asthma, uncomplicated; Z87.891 Personal history of nicotine dependence
CPT/HCPCS: 36415; 80053; 85025; 99283

== ENCOUNTER 2018-01-27 19:52 | Emergency (ER) | payer SELFPAY ==
--- NOTE | 2018-01-27 22:15 | ER Document Report ---
ED General - General Chief Complaint: Abscess Stated Complaint: POSSIBLE ABSCESS Time Seen by Provider: 01/27/18 21:16 TRAVEL OUTSIDE OF THE [place] IN LAST 30 DAYS: No - Related Data Allergies/Adverse Reactions: No Known Allergies Allergy (Verified 10/24/17 17:04) Past Medical History - Social History Smoking Status: Unknown if Ever Smoked Family History: Reviewed & Not Pertinent Pulmonary Medical History: Reports: Hx Asthma, Hx Bronchitis Renal/ Medical History: Denies: Hx Peritoneal Dialysis Psychiatric Medical History: Reports: Hx Bipolar Disorder, Hx Depression Past Surgical History: Reports: Other - Right breast abscess drained February,Aug & Oct 2017 Tremaine Ahn Physical Exam - Vital signs Vitals: Temp Pulse Resp BP Pulse Ox 98.8 F 90 18 127/73 H 98 01/27/18 20:26 01/27/18 20:26 01/27/18 20:26 01/27/18 20:26 01/27/18 20:26 Course - Vital Signs Vital signs: Temp Pulse Resp BP Pulse Ox 98.8 F 90 18 127/73 H 98 01/27/18 20:26 01/27/18 20:26 01/27/18 20:26 01/27/18 20:26 01/27/18 20:26 Procedures - Ultrasound/Bedside Ultrasound/Bedside Time completed: 22:15 Ultrasound: Other - Ultrasound performed of the left periareolar breast tissue. There is a questionable area less than 1 cm wide of pus however there is minimal cellulitis and no large collections. Patient is tender on exam but there is no skin redness. Discharge - Discharge Referrals: KULDIP ADAN DO [Primary Care Provider] - Follow up as needed
[2018-01-27] MEDS ORDERED: CEPHALEXIN 500 MG CAPSULE PO ONE (22:17)
[2018-01-27] MEDS ORDERED: OXYCODONE HCL IR 5 MG TABLET PO ONE (22:17)
[2018-01-27] MEDS ORDERED: SULFAMETHOXAZOLE/TRIMETHOPRIM 800-160 MG TABLET PO ONE (22:17)
--- NOTE | 2018-01-27 22:17 | ER Document Report ---
ED Skin Rash/Insect Bite/Abscs - General Chief Complaint: Abscess Stated Complaint: POSSIBLE ABSCESS Time Seen by Provider: 01/27/18 21:16 Mode of Arrival: Ambulatory Information source: Patient Notes: 37-year-old female presents to ED for complaint of abscess to the right breast 1 week. She denies any drainage there is minimal redness there is a very small knot to the right breast just 3:00 to the nipple TRAVEL OUTSIDE OF THE [place] IN LAST 30 DAYS: No - HPI Patient complains to provider of: Tender/swollen area - Right breast Onset: Last week Onset/Duration: Gradual Quality of pain: Sharp Severity: Severe Pain Level: 5 Skin Character: Abscess Quality of rash: Painful Exacerbated by: Movement Relieved by: Denies Similar symptoms previously: Yes Recently seen / treated by doctor: No - Related Data Allergies/Adverse Reactions: No Known Allergies Allergy (Verified 10/24/17 17:04) Past Medical History - General Information source: Patient - Social History Smoking Status: Current Every Day Smoker Cigarette use (# per day): Yes Smoking Education Provided: Yes - 4 min Frequency of alcohol use: Occasional Drug Abuse: None Lives with: Friend Family History: CAD, DM, Hyperlipidemia, Hypertension. denies: Arthritis, COPD , CVA, Malignancy, Thyroid Disfunction Patient has suicidal ideation: No Patient has homicidal ideation: No - Past Medical History Cardiac Medical History: Reports: None Pulmonary Medical History: Reports: Hx Asthma, Hx Bronchitis EENT Medical History: Reports: None Neurological Medical History: Reports: None Endocrine Medical History: Reports: None Renal/ Medical History: Reports: None Malignancy Medical History: Reports: None GI Medical History: Reports: None Musculoskeltal Medical History: Reports None Skin Medical History: Reports Hx Cellulitis Psychiatric Medical History: Reports: Hx Bipolar Disorder, Hx Depression Traumatic Medical History: Reports: None Infectious Medical History: Reports: None Past Surgical History: Reports: Hx Section, Hx Cholecystectomy, Other - Right breast abscess drained February,Aug & Oct 2017 - Immunizations Immunizations up to date: Yes Review of Systems - Review of Systems Constitutional: No symptoms reported EENT: No symptoms reported Cardiovascular: No symptoms reported Respiratory: No symptoms reported Gastrointestinal: No symptoms reported Genitourinary: No symptoms reported Female Genitourinary: No symptoms reported Musculoskeletal: No symptoms reported Skin: Other - Abscess right breast Hematologic/Lymphatic: No symptoms reported Neurological/Psychological: No symptoms reported -: Yes All other systems reviewed and negative Physical Exam - Vital signs Vitals: Temp Pulse Resp BP Pulse Ox 98.8 F 90 18 127/73 H 98 01/27/18 20:26 01/27/18 20:26 01/27/18 20:26 01/27/18 20:26 01/27/18 20:26 Interpretation: Normal - General General appearance: Appears well, Alert Notes: Multiple scars and very small tender area to the 3:00 on the right breast no redness no inflammation - HEENT Head: Normocephalic, Atraumatic Eyes: Normal Pupils: PERRL - Respiratory Respiratory status: No respiratory distress Chest status: Nontender Breath sounds: Normal Chest palpation: Normal - Cardiovascular Rhythm: Regular Heart sounds: Normal auscultation Murmur: No - Abdominal Inspection: Normal Distension: No distension Bowel sounds: Normal Tenderness: Nontender Organomegaly: No organomegaly - Back Back: Normal, Nontender - Extremities General upper extremity: Normal inspection, Nontender, Normal color, Normal ROM , Normal temperature General lower extremity: Normal inspection, Nontender, Normal color, Normal ROM , Normal temperature, Normal weight bearing. No: Jaycee's sign - Neurological Neuro grossly intact: Yes Cognition: Normal Orientation: AAOx4 Hector Coma Scale Eye Opening: Spontaneous [place] Coma Scale Verbal: Oriented Hector Coma Scale Motor: Obeys Commands Hector Coma Scale Total: 15 Speech: Normal Motor strength normal: LUE, RUE, LLE, RLE Sensory: Normal - Psychological Associated symptoms: Normal affect, Normal mood - Skin Skin Temperature: Warm Skin Moisture: Dry Skin Color: Normal Skin irregularity: Abscess - Possible minimal abscess to right breast at 3:00 Character of irregularity: negative: Erythematous Irregularity with: Swelling, Tenderness - Normal. negative: Warmth Course - Re-evaluation Re-evalutation: 01/28/18 01:09 Right breast assessed by Dr. Sim with ultrasound. I was only able to see a very small abscess. He agreed that the abscess was less than 1 cm. No redness no inflammation patient states that it is extremely painful. Multiple scars noted to the area. Patient was given Keflex and Bactrim and 1 oxycodone in the emergency room and discharged home with prescriptions for Keflex and Bactrim and 2 more oxycodone. Patient to follow-up with primary doctor and surgeon. - Vital Signs Vital signs: Temp Pulse Resp BP Pulse Ox 98.8 F 66 16 139/78 H 96 01/27/18 20:26 01/27/18 22:42 01/27/18 22:42 01/27/18 22:42 01/27/18 22:42 Discharge - Discharge Clinical Impression: Abscess of right breast Condition: Stable Disposition: HOME, SELF-CARE Additional Instructions: ABSCESS: You have an abscess (boil). This a pus-forming infection, usually due to staph. Some boils may be left to drain on their own, but most require lancing. From the time the tender lump first appears, it may be three or four days before the abscess is ready to [place]. Local heat and rest help at this stage of treatment. An antibiotic may prevent spread of the infection. Once the abscess is opened, packing may be placed into it. This is done so pus is not sealed inside by premature closure of the cavity. The packing will be removed at your follow-up visit or you may be advised to remove it yourself at home. Sometimes this packing must be replaced a few times during healing. The wound will heal with surprisingly little scar. Depending on the size and location of an abscess, healing can take one to four weeks. You may shower and wash the area around the incision site two or three times a day. Antibiotics may be prescribed, but are usually not necessary after an abscess has been drained. If you develop fever, chills, worsening pain, or increasing swelling in the area, call the doctor or return immediately. ORAL NARCOTIC MEDICATION: You have been given a prescription for pain control. This medication is a narcotic. It's best taken with food, as nausea can result if taken on an empty stomach. Don't operate machinery or drive within six hours of taking this medication. Do not combine this medicine with alcohol, or with any medication which can cause sedation (such as cold tablets or sleeping pills) unless you get permission from the physician. Narcotics tend to cause constipation. If possible, drink plenty of fluids and eat a diet high in fiber and fruits. CEPHALEXIN: The antibiotic you've been prescribed is a member of the cephalosporin class. This type of antibiotic covers a wide variety of infections, including those of the skin, lungs, and urinary tract. It's useful for staph infections. This antibiotic is slightly similar to the penicillin family. In rare cases , a person who is allergic to penicillin will also be allergic to this medication. If you have had a severe allergic reaction to penicillin, and have not taken this antibiotic since that time, notify your doctor. Antibiotics which cover many germs ("broad spectrum" antibiotics) are more likely to cause diarrhea or "yeast" infections. Women prone to vaginal yeast problems may suffer an attack after taking this antibiotic. In infants, oral thrush (white spots "stuck" on the cheek) or yeast diaper rash may result. See your doctor if these problems occur. Call at once if you develop itching, hives , shortness of breath, or lightheadedness. TRIMETHOPRIM-SULFA: You have been given a prescription for trimethoprim-sulfa (TMS, Septra, Bactrim). This is a combination antibiotic of the sulfa class, often used for urinary tract infections, middle ear infections, bronchitis, shigella intestinal infection, and Pneumocystis pneumonia. TMS is usually well-tolerated. Occasional side effects include nausea and decreased appetite. Septra is not recommended for infants less than two months of age. Do not take this medication if you have experienced severe side effects or allergy to sulfa medicine. You should stop this medicine at once and contact your physician if you develop any rash, joint pain, shortness of breath, bruising, or jaundice ( yellow color in the skin), or if you develop any other new or unusual symptoms. Epsom Salt Soaks Soak the wound area in a container of warm epsom salt water. If you can't get the wound area into a bucket or arvizu, use a folded towel soaked in the epsom salt solution and apply to the area. Use clean hot tap water (about the temperature of a very warm bath), mixing in about one (1) teaspoon for every pint of water. Two gallon --> 16 teaspoons Epsom Salts One gallon --> 8 teaspoons Epsom Salts Two quarts --> 4 teaspoons Epsom Salts One quart --> 2 teaspoons Epsom Salts Soak the wound for about 20 minutes while gently moving it around in the water. Repeat this four (4) times a day. FOLLOW-UP CARE: If you have been referred to a physician for follow-up care, call the physician s office for an appointment as you were instructed or within the next two days. If you experience worsening or a significant change in your symptoms, notify the physician immediately or return to the Emergency Department at any time for re-evaluation. Prescriptions: Oxycodone HCl [Oxy-Ir 5 mg Tablet] 5 mg PO Q6HP PRN #2 tab PRN Reason: Cephalexin Monohydrate [Keflex 500 mg Capsule] 500 mg PO QID #20 capsule Fluconazole [Diflucan] 100 mg PO ONCE PRN #1 tablet PRN Reason: Sulfamethoxazole/Trimethoprim [Bactrim Ds Tablet] 1 each PO BID #20 tablet Forms: Elevated Blood Pressure, Return to Work Referrals: JOSEPH URIAS MD [ACTIVE STAFF] - 01/29/18 KULDIP ADAN DO [Primary Care Provider] - 01/29/18
[2018-01-27 22:43] VITALS: BP 139/78
== END 2018-01-27 22:45 | disposition home or self-care (01) ==
LOC: ER 19:52
DX: N61.1 Abscess of the breast and nipple (principal); J45.909 Unspecified asthma, uncomplicated; F17.210 Nicotine dependence, cigarettes, uncomplicated; Z71.6 Tobacco abuse counseling
CPT/HCPCS: 99282

== ENCOUNTER 2018-03-27 16:43 | Emergency (ER) | payer SELFPAY ==
--- NOTE | 2018-03-27 17:01 | ER Document Report ---
HPI - HPI Pain Level: 4 Notes: Patient is a 37-year-old female with a history of recurrent abscesses to her breasts who presents to the ED complaining of start up of swelling and pain to the right nipple area and some burning pain starting the left nipple. Her symptoms started a couple days ago. Patient has had to have surgery multiple times in the past. She still eating and drinking without difficulties. She is urinating normally and having normal bowel moods. Last time she was here she was able be placed on antibiotics which improved her symptoms without having to have an incision and drainage performed. Denies any drug allergies. Denies any history of MRSA. Patient does admit to smoking but denies IV drug use. Denies any headache, fever, neck pain, URI, sore throat, chest pain, palpitations, syncope, cough, shortness of breath, wheeze, dyspnea, abdominal pain, nausea/vomiting/diarrhea, urinary retention, dysuria, hematuria, or rash. - ROS Systems Reviewed and Negative: Yes All other systems reviewed and negative - REPRODUCTIVE Reproductive: DENIES: : Past Medical History - Social History Smoking Status: Current Every Day Smoker Family History: CAD, DM, Hyperlipidemia, Hypertension. denies: Arthritis, COPD , CVA, Malignancy, Thyroid Disfunction Pulmonary Medical History: Reports: Hx Asthma, Hx Bronchitis Renal/ Medical History: Denies: Hx Peritoneal Dialysis Skin Medical History: Reports Hx Cellulitis Psychiatric Medical History: Reports: Hx Bipolar Disorder, Hx Depression Past Surgical History: Reports: Hx Section, Hx Cholecystectomy, Other - Right breast abscess drained February,Aug & Oct 2017 - Immunizations Immunizations up to date: Yes Vertical Provider Document - CONSTITUTIONAL Agree With Documented VS: Yes Notes: PHYSICAL EXAMINATION: accompanied by female nursejc GENERAL: Well-appearing, well-nourished and in no acute distress. Chest: rt breast 3 oclock position to the nipple there is a small 1.5cm indurated area noted. Minimal to no erythema to the skin. + tenderness. Lt nipple is mildly tender w/o abscess, erythema, or induration. No streaks b/l. LUNGS: Breath sounds clear to auscultation bilaterally and equal. No wheezes rales or rhonchi. HEART: Regular rate and rhythm without murmurs, rubs, gallops. Extremities: No cyanosis, clubbing, or edema b/l. NEUROLOGICAL: Normal speech, normal gait. PSYCH: Normal mood, normal affect. SKIN: see above. Warm, Dry, normal turgor, no rashes or lesions noted. - INFECTION CONTROL TRAVEL OUTSIDE OF THE [place] IN LAST 30 DAYS: No Course - Re-evaluation Re-evalutation: 03/27/18 17:05 Patient is an afebrile, well-hydrated, 37-year-old female who presents to the ED with an possible small abscess/fluid collection to the right breast. Vitals are acceptable. PE is otherwise unremarkable. Ultrasound was performed by Dr. Leon and a small fluid collection was noted to the 3pm position to the nipple on the rt breast. Consulted Dr. Mcpherson, surgeon, who will come aspirate it. 03/27/18 18:10 Dr. Mcpherson eval'd the patient and recommends treatment with just Bactrim at this time and f/u in the office. He does not need to aspirate or open at this time as there is just a very small fluid collection if it is fluid at all per Dr. Mcpherson. She is no significant tachycardia, tachypnea, or hypoxia. She is tolerating p.o. without difficulties. Conservative measures for symptoms otherwise. Recheck with your PCM this week. Schedule an appointment for follow-up with the general surgeons office. Return to the ED with any worsening/concerning symptoms otherwise as reviewed discharge. Patient is in agreement. - Vital Signs Vital signs: Temp Pulse Resp BP Pulse Ox 99.4 F 106 H 16 148/78 H 97 03/27/18 16:49 03/27/18 16:49 03/27/18 16:49 03/27/18 16:49 03/27/18 16:49 Discharge - Discharge Clinical Impression: Breast abscess Condition: Stable Disposition: HOME, SELF-CARE Instructions: Trimethoprim-Sulfa ([facility]) Additional Instructions: Keep the skin clean Wash with soap and water Tylenol/ibuprofen if needed Triple antibiotic ointment daily Take medication as directed Monitor for any worsening symptoms Recheck with your PCM in 3-5 days Schedule an appointment for follow-up with the general surgeons office Return to the ED with any worsening symptoms and/or development of fever, headache, chest pain, palpitations, syncope, shortness of breath, trouble breathing, abdominal pain, n/v/d, abscess, purulent discharge, red streaks, worsening swelling, or other worsening symptoms that are concerning to you. Prescriptions: Naproxen 500 mg PO BID PRN #30 tablet PRN Reason: Forms: Elevated Blood Pressure, Smoking Cessation Education Referrals: JOSEPH URIAS MD [ACTIVE STAFF] - Follow up in 3-5 days
[2018-03-27] MEDS ORDERED: OXYCODONE HCL IR 5 MG TABLET PO ONE (17:13)
[2018-03-27 18:23] VITALS: BP 140/85
--- NOTE | 2018-03-27 19:57 | PDOC CONSULTATION ---
Consultation Consult Date: 03/27/18 Consult reason:: breast pain History of Present Illness Admission Date/PCP: KULDIP ADAN DO Patient complains of: Breast pain History of Present Illness: TIA DELGADO is a 37 year old female with a history of multiple recurrent abscesses of the right breast. Patient reports a 2-3 day history of increasing pain at the 3 o'clock position (immediately deep to the areola) on the right breast. She reports her pain is 10 out of 10 and constant. Patient denies any fevers, chills, nausea, vomiting, drainage, chest pain, shortness of breath, abdominal pain, orthostasis. Nothing makes her pain better. Palpation or movement makes her pain worse. Past Medical History Pulmonary Medical History: Reports: Asthma, Bronchitis Skin Medical History: Reports: Other - Multiple breast abscesses. Psychiatric Medical History: Reports: Bipolar Disorder, Depression Past Surgical History Past Surgical History: Reports: Section, Cholecystectomy, Other - Right breast abscess drained February,Aug & Oct 2017 Social History Smoking Status: Current Every Day Smoker Frequency of Alcohol Use: Occasional Hx Recreational Drug Use: No Drugs: None Hx Prescription Drug Abuse: No Family History Family History: CAD, DM, Hyperlipidemia, Hypertension. denies: Arthritis, COPD , CVA, Malignancy, Thyroid Disfunction Parental Family History Reviewed: Yes Children Family History Reviewed: Yes Sibling(s) Family History Reviewed.: Yes Medication/Allergy Home Medications: Ibuprofen [Motrin 600 Mg Tablet] 600 mg PO TID #15 tablet 03/27/18 Allergies/Adverse Reactions: No Known Allergies Allergy (Verified 03/27/18 17:27) Review of Systems Constitutional: ABSENT: chills, fatigue, fever(s), headache(s) Eyes: ABSENT: visual disturbances Nose, Mouth, and Throat: ABSENT: sore throat Cardiovascular: ABSENT: chest pain, dyspnea on exertion Respiratory: ABSENT: cough, dyspnea Gastrointestinal: ABSENT: abdominal pain, bloating, constipation, diarrhea Genitourinary: ABSENT: dysuria Musculoskeletal: ABSENT: deformity Integumentary: PRESENT: other Neurological: ABSENT: abnormal movements, abnormal speech, memory loss Psychiatric: PRESENT: anxiety, depression Endocrine: ABSENT: cold intolerance, heat intolerance Hematologic/Lymphatic: ABSENT: easy bleeding, easy bruising Physical Exam Vital Signs: Temp Pulse Resp BP Pulse Ox 99.2 F 94 16 140/85 H 97 03/27/18 18:22 03/27/18 18:22 03/27/18 16:49 03/27/18 18:22 03/27/18 18:22 Intake & Output 03/26/18 03/27/18 03/28/18 06:59 06:59 06:59 Weight 91 kg General appearance: PRESENT: no acute distress Head exam: PRESENT: atraumatic, normocephalic Eye exam: PRESENT: EOMI, PERRLA. ABSENT: conjunctival injection, scleral icterus Mouth exam: PRESENT: neck supple Teeth exam: PRESENT: poor dentation Neck exam: ABSENT: lymphadenopathy, meningismus, tenderness, thyromegaly, tracheal deviation Respiratory exam: PRESENT: clear to auscultation kriss. ABSENT: chest wall tenderness, rales, rhonchi Cardiovascular exam: PRESENT: RRR Pulses: PRESENT: normal radial pulses Vascular exam: PRESENT: normal capillary refill. ABSENT: pallor GI/Abdominal exam: PRESENT: soft. ABSENT: distended, guarding, hernia, rebound , tenderness Rectal exam: PRESENT: deferred Extremities exam: ABSENT: joint swelling, tenderness Musculoskeletal exam: PRESENT: normal inspection Neurological exam: PRESENT: alert, awake, oriented to person, oriented to place , oriented to time, oriented to situation, CN II-XII grossly intact. ABSENT: motor sensory deficit Psychiatric exam: PRESENT: agitated, anxious, unusual affect Skin exam: PRESENT: other - Tender area at the 3 o'clock position in the right breast, deep to the areola. No erythema, no induration, no purulent drainage. Small 1 cm nodularity in this position.. ABSENT: cyanosis, jaundice Assessment & Plan - Plan Summary Plan Summary: This is a 37-year-old female with a history of multiple breast abscesses. The patient reports increasing pain in the right breast. On exam, I am unimpressed with the amount of erythema, induration, or other signs of infection. Bedside ultrasound was performed by me. There is no significant fluid collection on ultrasound. I have offered the patient an aspiration in an attempt to help alleviate her symptoms, but she has refused. In light of this, I recommend antibiotics and close interval follow-up. This has been discussed with the physicians curriculum assistant principal in the emergency department.
== END 2018-03-27 18:23 | disposition home or self-care (01) ==
LOC: ER 16:43
DX: N61.1 Abscess of the breast and nipple (principal); N64.4 Mastodynia; N63.0 Unspecified lump in unspecified breast; F17.200 Nicotine dependence, unspecified, uncomplicated; J45.909 Unspecified asthma, uncomplicated
CPT/HCPCS: 99282